=== PATIENT | female | born 1940 | race African-American/Black ===

== ENCOUNTER 2016-12-02 15:14 | Emergency (ER) | payer MEDICARE ==
[~2016-12-02] VITALS: Ht 165.1 cm; Wt 60.0 kg
[~2016-12-02 15:14] MED LIST: NO MEDS
[2016-12-02 16:13] LABS: CLARITY URINE CLEAR (CLEAR); COLOR URINE YELLOW (YELLOW); GLUCOSE URINE NEGATIVE (NEGATIVE); KETONES URINE NEGATIVE (NEGATIVE); LEUKOCYTE ESTERASE URINE NEGATIVE (NEGATIVE); NITRITE URINE NEGATIVE (NEGATIVE); OCCULT BLOOD URINE NEGATIVE (NEGATIVE); PROTEIN URINE NEGATIVE (NEGATIVE); SPECIFIC GRAVITY URINE 1.022 (1.005-1.030); UROBILINOGEN URINE 0.2 E.U./dL (0.2-1.0)
[2016-12-02 16:13] LABS: BASOPHILS % 0.3 % (0.0-2.0); HEMATOCRIT. 36.7 % (36.0-48.0); HEMOGLOBIN. 12.2 g/dL (12.0-16.0); LYMPHOCYTES % 14.4 % (20.0-50.0); MEAN CORPUSCULAR VOLUME 84.5 fL (81.0-99.0); MEAN PLATELET VOLUME 7.9 fl (7.4-10.4); MONOCYTES % 5.8 % (2.0-8.0); NEUTROPHILS % 79.5 % (40.0-76.0); PLATELET 235 x1000/uL (130-400); RED BLOOD CELL COUNT 4.34 mill/uL (4.2-5.4); RED CELL DISTRIBUTION WIDTH 14.8 % (11.6-14.6)
[2016-12-02 16:16] LABS: CHLORIDE 104 mEq/L (98-107); PROTHROMBIN TIME 10.5 sec
[2016-12-02 16:21] LABS: CARBON DIOXIDE 28 mEq/L (21-32)
[2016-12-02 19:30] VITALS: BP 134/93
== END 2016-12-02 20:04 | disposition home or self-care (01) ==
LOC: ER 15:43
DX: R55 Syncope and collapse (principal)
CPT/HCPCS: 36415; 71010; 80053; 81003; 84484; 85025; 85610; 87040; 93005; 99285